=== PATIENT | male | born 1935 | race Caucasian/White ===

== ENCOUNTER 2018-08-26 10:18 | Emergency (ER) | payer MEDICARE, OTHER ==
[~2018-08-26] VITALS: Ht 188 cm; Wt 90.7 kg
[2018-08-26] MEDS ORDERED: CARV6.25 PO (10:46)
[2018-08-26] MEDS ORDERED: METF500C PO (10:47)
[2018-08-26] MEDS ORDERED: WARF10 PO (10:47)
[2018-08-26] MEDS ORDERED: LISI5 PO (10:47)
[2018-08-26] MEDS ORDERED: TAMS.4ER PO (10:48)
[2018-08-26] MEDS ORDERED: B-121000 MC2 PO (10:48)
[2018-08-26] MEDS ORDERED: ASPI81CH PO (10:48)
== END 2018-08-26 11:58 | disposition home or self-care (01) ==
LOC: ER 10:18
DX: T82.119A Breakdown (mechanical) of unspecified cardiac electronic device, initial encounter (principal); Z91.048 Other nonmedicinal substance allergy status; Z79.899 Other long term (current) drug therapy; Z79.84 Long term (current) use of oral hypoglycemic drugs; Z79.01 Long term (current) use of anticoagulants; Z79.82 Long term (current) use of aspirin
CPT/HCPCS: 36415; 93005; 93010; 99284-25

== ENCOUNTER → 2019-10-07 | Outpatient (CLI) | payer MEDICARE, OTHER ==
[~2019-10-07] MED LIST: ASPI81CH PO; B-121000 MC2 PO; CARV6.25 PO; LISI5 PO; METF500C PO; TAMS.4ER PO; WARF10 PO
== END | disposition home or self-care (01) ==
LOC: LAB SHORT 11:36 → LAB 11:36
DX: M20.42 Other hammer toe(s) (acquired), left foot (principal)
CPT/HCPCS: 87070; 87106; 87205

== ENCOUNTER 2022-05-22 17:30 | Emergency (ER) | payer MEDICARE, OTHER ==
[~2022-05-22] VITALS: Ht 188 cm; Wt 90.3 kg
[2022-05-22 18:03] LABS: BASOPHILS ABSOLUTE AUTO 0.02 K/mm3 (0.00-0.23); BASOPHILS PERCENT AUTO 0 % (0-2); EOSINOPHILS ABSOLUTE AUTO 0.06 K/mm3 (0.00-0.68); EOSINOPHILS PERCENT AUTO 1 % (0-6); Hemoglobin 11.3 g/dL (13.5-17.5); IMMATURE GRAN ABSOLUTE AUTO 0.04 K/mm3 (0.00-0.10); IMMATURE GRAN PERCENT AUTO 0 % (0-1); LYMPHOCYTES PERCENT AUTO 9 % (21-46); MONOCYTES ABSOLUTE AUTO 0.82 K/mm3 (0.16-1.47); MONOCYTES PERCENT AUTO 7 % (4-13); Mean Corpuscular HGB 33.2 pg (26.0-34.0); Mean Corpuscular HGB Conc 34.2 g/dL (31.5-36.5); Mean Corpuscular Volume 97 fL (80-100); Mean Platelet Volume 11.6 fL (9.1-12.4); NEUTROPHILS ABSOLUTE AUTO 9.17 K/mm3 (1.96-9.15); NEUTROPHILS PERCENT AUTO 83 % (41-73); Platelet Count 111 K/mm3 (150-400); RDW Coefficient Variation 13.2 % (11.7-14.2); RDW Standard Deviation 46.9 fL (35.1-46.3); White Blood Cell Count 11.11 K/mm3 (4.00-11.30)
[2022-05-22 18:17] LABS: Albumin, Blood 3.8 g/dL (3.4-5.0); Bilirubin, Total 1.3 mg/dL (0.1-1.0); Bun/Creatinine Ratio 21.3 (12.0-20.0); Creatinine, Blood 1.69 mg/dL (0.60-1.20); Potassium, Blood 4.5 mmol/L (3.5-5.5); Total Protein, Blood 7.8 g/dL (6.4-8.2)
[2022-05-22 19:06] LABS: Source, Urine Clean Catch
[2022-05-22 19:22] LABS: Appearance, Urine Clear (Clear); Bilirubin, Urine Neg (Neg); Blood, Urine Neg (Neg); Color, Urine Yellow (P-Yellow); Glucose Qualitative, Urine Neg (Neg); Ketones, Urine Neg (Neg); Leukocyte Esterase, Urine Neg (Neg); Nitrite, Urine Neg (Neg); Protein, Urine Neg (Neg); Specific Gravity, Urine 1.005 (1.003-1.022); Urobilinogen, Urine NORM (Normal)
[2022-05-22] MEDS ORDERED: LIPITOR80 MG PO (19:38)
[2022-05-22] MEDS ORDERED: GLIMEPIRIDE4 MG PO (19:39)
[2022-05-22] MEDS ORDERED: Feosol45 MG PO (19:45)
[2022-05-22] MEDS ORDERED: FUROSEMIDE20 MG PO (19:46)
[2022-05-22] MEDS ORDERED: LOSA25 PO (19:46)
[2022-05-22] MEDS ORDERED: C COMPLEX1000 M1 PO (19:47)
[2022-05-22] MEDS ORDERED: THERA-D2000 UNIT PO (19:47)
[2022-05-22] MEDS ORDERED: COLACE100 MG PO (20:10)
== END 2022-05-22 20:47 | disposition home or self-care (01) ==
LOC: ER 17:30
PROVIDERS: Physician Assistant
DX: K59.00 Constipation, unspecified (principal); R10.30 Lower abdominal pain, unspecified; N18.9 Chronic kidney disease, unspecified; Z95.1 Presence of aortocoronary bypass graft; Z79.84 Long term (current) use of oral hypoglycemic drugs; Z79.899 Other long term (current) drug therapy; Z79.82 Long term (current) use of aspirin
CPT/HCPCS: 36415; 74177; 80053; 81003; 83690; 85025; Q9967